=== PATIENT | male | born 1980 | race Caucasian/White ===

== ENCOUNTER 2021-12-16 20:36 | Emergency (ER) | payer BC, OTHER ==
[~2021-12-16] VITALS: Ht 182.9 cm; Wt 97.5 kg
[~2021-12-16 20:36] MED LIST: NEXIUM2.5 MG; PROPRANOLOL 1010 M1; ULTRAM 50MG TAB50 MG PO; [UNRECOGNIZED DRUG - REMARK]
[2021-12-16] MEDS ORDERED: VENLAFAXINE HC150 MG PO (20:42)
[2021-12-16] MEDS ORDERED: VALACYCLOVIR1000 MG PO (20:43)
[2021-12-16 21:19] LABS: HEMATOCRIT 50.5 % (42.0-52.0); HEMOGLOBIN 17.2 gm/dL (14.0-18.0); MCH 33.5 pg (26.0-34.0); MCHC 34.1 g/dL (28.0-37.0); MCV 98.2 fL (80.0-100.0); RBC 5.14 mil/uL (4.50-6.00); RDW 13.3 % (10.5-14.5); WBC 6.4 thou/uL (4.0-11.0)
[2021-12-16 21:29] LABS: CALCIUM 8.6 mg/dL (8.5-10.1); CREATININE 1.1 mg/dL (0.7-1.3); POTASSIUM 3.5 mmol/L (3.5-5.1)
[2021-12-16 21:39] LABS: ALBUMIN 3.7 g/dL (3.4-5.0); TOTAL BILIRUBIN 0.3 mg/dL (0.2-1.0); TOTAL PROTEIN 6.9 g/dL (6.4-8.2)
[2021-12-16 22:05] VITALS: BP 149/100
--- NOTE | 2021-12-17 07:48 | EKG ---
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: THELMA : 1980 Requested By: Hannah Moseley Order Number: [id number] MD: Zaire Sarmiento Measurements Intervals [place] Rate: 86 P: 52 NE: 158 QRS: -33 QRSD: 97 T: 94 QT: 367 QTc: 439 Interpretive Statements Sinus rhythm Left atrial enlargement Left ventricular hypertrophy Nonspecific T abnormalities, lateral leads Baseline wander in lead(s) I No previous ECG available for comparison Electronically Signed On 12-17-2021 7:46:48 [employer] by Zaire Sarmiento [email or web address] <ELECTRONICALLY SIGNED> By: Zaire Sarmiento MD, [facility] 12/17/21 [id number] Zaire Sarmiento MD, FACC /EPI
== END 2021-12-16 22:06 | disposition home or self-care (01) ==
LOC: ER 20:36
PROVIDERS: Student in an Organized Health Care Education/Training Program
DX: R07.89 Other chest pain (principal); Z79.899 Other long term (current) drug therapy; Z88.8 Allergy status to other drugs, medicaments and biological substances